=== PATIENT | male | born 1950 | race African-American/Black ===

== ENCOUNTER 2018-01-06 11:31 | Emergency (ER) | payer OTHER ==
[~2018-01-06] VITALS: Ht 167.6 cm; Wt 79.4 kg
[~2018-01-06 11:31] MED LIST: ABILIFY 5MG5 MG PO; AMBIEN 10MG10 MG PO; ARIPIPRAZOLE5 M1 PO; BELSOMRA10 MG PO; CARAFATE1 G1 PO; CLEOCIN HCL300 MG PO; DEXILANT60 M1 PO; FLUOXETINE HCL40 M1 PO; IBUPROFEN600 MG PO; JANUMET 50-1,01 EACH PO; KEFLEX500 MG PO; LISINOPRIL10 M1 PO; MOBIC7.5 M1 PO; MOTRIN 600 MG600 MG PO; ORAJEL MOUTH SO TOP; PROZAC40 MG PO; VESICARE5 M1 PO; [UNRECOGNIZED DRUG - OTHER] OPH
[2018-01-06 11:48] VITALS: BP 159/86
--- NOTE | 2018-01-06 14:00 | ED SKIN/ALLERGY COMPLAINT ---
History of Present Illness General Chief Complaint: General Adult Stated Complaint: "I'VE HAD BOILS AND RASHES X3 DAYS AGO" Source: patient Exam Limitations: no limitations Vital Signs & Intake/Output Vital Signs & Intake/Output Vital Signs Date Time Temp Pulse Resp B/P B/P Pulse O2 O2 Flow FiO2 Mean Ox Delivery Rate 01/06 1148 96.3 111 18 159/86 98 Room Air ED Intake and Output 01/07 0000 01/06 1200 Intake Total Output Total Balance Patient 175 lb Weight Weight Reported by Patient Measurement Method Allergies Coded Allergies: NO KNOWN ALLERGIES (12/14/14) Reconcile Medications Amoxicillin/Potassium Clav (Augmentin 875-125 Tablet) 875 MG-125 MG TABLET 1 TAB PO BID dental infection Aripiprazole 5 MG TABLET 1 TAB PO DAILY ANXIETY (Reported) Dexlansoprazole (Dexilant) 60 MG CAP.DR.BP 1 CAP PO DAILY REFLUX (Reported) Fluoxetine HCl 40 MG CAPSULE 1 CAP PO QAM ANXIETY (Reported) Hydrocortisone (Anti-Itch) 1 % CREAM..G. 1 MIMI TD BID rash Lisinopril 10 MG TABLET 1 TAB PO DAILY HTN (Reported) Meloxicam (Mobic) 7.5 MG TABLET 1 TAB PO DAILY PRN PAIN Meloxicam (Mobic) 7.5 MG TABLET 1 TAB PO DAILY PRN PAIN Sitagliptin Phos/Metformin HCl (Janumet 50-1,000 MG Tablet) 50 MG-1,000 MG TABLET 1 TAB PO BID DM (Reported) Solifenacin Succinate (Vesicare) 5 MG TABLET 1 TAB PO DAILY URINE (Reported) Sucralfate (Carafate) 1 GRAM TABLET 1 TAB PO 4 TIMES/DAY PRN gerd Suvorexant (Belsomra) 10 MG TABLET 1 TAB PO QPM SLEEP (Reported) Triage Note: 67 Y/O MALE C/O RASH AND SWELLING TO L SIDED FACE (AROUND EYE) X 3-4 DAYS. +ITCHY PER PT. DENIES PAIN Triage Nurses Notes Reviewed? yes Onset: Gradual Duration: day(s): Timing: recent history Severity: moderate Location: face, torso, extremities HPI: 67yo male with hx of DM presents to ED complaining of itchy rash on left face, right arm, right leg, abdomen x 7 days. Patient states he has been applying topical hydrogen peroxide, alcohol rub, calamine lotion. Patient also reports left upper "tooth ache" which started last night. He reports associated left sided facial swelling since onset of tooth pain. He states his facial swelling is intermittently painful. Patient has an appointment with his dentist in two days, he states "I think I have a cavity". Patient denies exposure to new substances, chemicals, plants. He denies fevers, chills, vomiting, malaise. (Idalia Blank) Past History Travel History Traveled to [place] past 21 day No Medical History Any Pertinent Medical History? see below for history Neurological: NONE EENT: NONE Cardiovascular: hypertension Respiratory: NONE Gastrointestinal: ACID REFLUX Hepatic: NONE Renal: NONE Musculoskeletal: NONE Psychiatric: NONE Endocrine: NIDDM Blood Disorders: NONE Cancer(s): NONE RN NEONATAL ICU/Reproductive: NONE Surgical History Surgical History: N Psychosocial History What is your primary language Montenegrin Tobacco Use: Never used Family History Hx Contributory? No (Idalia Blank) Review of Systems Review of Systems Constitutional: Reports: no symptoms. EENTM: Reports: see HPI. Respiratory: Reports: no symptoms. Cardiovascular: Reports: no symptoms. GI: Reports: no symptoms. Genitourinary: Reports: no symptoms. Musculoskeletal: Reports: no symptoms. Skin: Reports: see HPI. Neurological/Psychological: Reports: no symptoms. Hematologic/Endocrine: Reports: no symptoms. Immunologic/Allergic: Reports: no symptoms. All Other Systems: Reviewed and Negative (Idalia Blank) Physical Exam Physical Exam General Appearance: well developed/nourished, no apparent distress, alert, awake Head: atraumatic, normal appearance Eyes: Bilateral: normal appearance. Ears, Nose, Throat: hearing grossly normal, poor dentition, no dental or gingival tenderness, no significant gingival swelling, mild left facial swelling involving cheek, nontender, no significant erythema, no trismus Neck: normal inspection, supple, full range of motion Respiratory: no respiratory distress Back: normal inspection, normal range of motion Extremities: scabbed and slightly excorated erythematous rash to right arm, right leg, abdomen Neurologic/Psych: awake, alert, oriented x 3 Skin: see rash as mentioned on extremities exam (Idalia Blank) Progress Differential Diagnosis: abscess/cellulitis, contact dermatitis, drug reaction, shingles, urticaria, scabies, gingivitis, dental infection Plan of Care: Given the patient's left-sided tooth pain and left-sided facial swelling there is suspicion for dental/gingival infection. Will treat with Augmentin and have close follow-up with the patient's dentist in 2 days. The patient's rash is likely related to form of contact dermatitis. No burrows or excoriations and web spaces to indicate scabies. The patient is diabetic, will initiate topical corticosteroids and have follow-up with primary care or here in the emergency department. Patient agrees with plan of care. Patient seen and evaluated by Dr. Orozco who agrees with this plan. The patient is nontoxic appearing, no acute distress. No evidence of trismus or ludwigs. (Nini ZAMORA,Idalia Salter) Departure Departure Disposition: HOME OR SELF CARE Condition: Stable Clinical Impression Primary Impression: Rash Secondary Impressions: Facial swelling, Pain, dental Referrals: Bri Quezada APRN (PCP/Family) Additional Instructions: Take antibiotics as prescribed for facial swelling and possible dental infection. Also apply hydrocortisone cream to areas where you have rash. You may take benadryl 25mg every 6 hours for itching as needed. You may continue calamine lotion. Follow up with your dentist as scheduled in two days. Return with worsening symptoms or concerns. Please note that there might be incidental findings in your evaluation that are unrelated to the current emergency department visit. Please notify your primary care doctor about this emergency department visit in order to obtain and review all of the testing performed so that these incidental findings can be monitored as needed. If you had an x-ray performed, please understand that some fractures may not be seen on the initial set of x-rays. If your symptoms persist you might need a repeat set of x-rays to check for such a fracture. If you had a laceration evaluated, please understand that foreign bodies such as glass or wood may not be visible to the naked eye or on plain x-rays. If the wound becomes red, swollen, increasingly more painful or if there is any drainage from the wound, please have it reevaluated by a physician for the possibility of a retained foreign body. If you're unable to follow up as outlined in the discharge instructions please return to the emergency department. Thank you for choosing the [facility] for your care. It was a pleasure to serve you today. Departure Forms: Customer Survey General Discharge Information Prescriptions: Current Visit Scripts Hydrocortisone (Anti-Itch) 1 MIMI TD BID #1 TUBE Amoxicillin/Potassium Clav (Augmentin 875-125 Tablet) 1 TAB PO BID #20 TAB (Nini ZAMORA,Idalia Salter) PA/HOUSEKEEPING SUPERVISOR [employer]OTEL Co-Sign Statement Statement: ED Attending supervision documentation- [x] I saw and evaluated the patient. I have also reviewed all the pertinent lab results and diagnostic results. I agree with the findings and the plan of care as documented in the PA's/HOUSEKEEPING SUPERVISOR HOTEL's documentation. [] I have reviewed the ED Record and agree with the PA's/HOUSEKEEPING SUPERVISOR HOTEL's documentation. [] Additions or exceptions (if any) to the PAs/HOUSEKEEPING SUPERVISOR HOTEL's note and plan are summarized below: [] (Pam MCKOY, Yvon)
[2018-01-06] MEDS ORDERED: ANTI-ITCH28 GM TD (14:07)
[2018-01-06] MEDS ORDERED: AUGMENTIN 875-1 EACH PO (14:07)
== END 2018-01-06 14:36 ==
LOC: ERH 11:31
DX: R21 Rash and other nonspecific skin eruption (principal); K08.89 Other specified disorders of teeth and supporting structures; R22.0 Localized swelling, mass and lump, head; I10 Essential (primary) hypertension; E11.9 Type 2 diabetes mellitus without complications